=== PATIENT | male | born 1980 | race Two or more races ===

== ENCOUNTER 2017-08-21 12:14 | Emergency (ER) | payer MEDICAID, OTHER ==
[2017-08-21] MEDS ORDERED: Ketorolac 60 MG/2 ML SDV IM ONE (12:58)
[2017-08-21 13:42] VITALS: BP 116/70
--- NOTE | 2017-08-21 15:18 | EDM.PDOC ---
ED HPI GENERAL MEDICAL PROBLEM - General Chief Complaint: Gastrointestinal Problem Stated Complaint: GENERAL WEAKNES Time Seen by Provider: 08/21/17 12:28 Source of Information: Reports: Patient History Limitations: Reports: No Limitations - History of Present Illness INITIAL COMMENTS - FREE TEXT/NARRATIVE: 37 y.o.w.m came to the ed one week after he was seen at a clinic in [place] where he was dx'd with Influenza A, but was not receiving Tamiflu. He came to our ED today because of gen body ache. He did not take Motrin. Pt denied trauma. His nose is still "running". No other acute medical issues. BP116/70 pulse 102 Temp 37.1 RR 18 Pulse ox 100% on RA. 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) Generalized Pain Score (Numeric/FACES): 6 - Related Data Allergies Allergy/AdvReac Type Severity Reaction Status Date / Time guaifenesin [From Robitussin] Allergy Severe Anaphylactic Verified 08/21/17 13: 12 Shock Home Meds: Home Meds Albuterol [Proair HFA] 1 puff IH Q4HR PRN 09/01/16 [History] Past Medical History - Past Health History Medical/Surgical History: Denies Medical/Surgical History HEENT History: Reports: Impaired Vision Cardiovascular History: Reports: Heart Murmur Respiratory History: Reports: Asthma Other Respiratory History: Recently restarted on Albuterol and Singulair due to respiratory problems with asthma due to work environment Gastrointestinal History: Reports: Other (See Below) Other Gastrointestinal History: frequent diarrhea Musculoskeletal History: Reports: Fracture Other Musculoskeletal History: ? ARM A VERY YOUNG CHILD Neurological History: Reports: None Psychiatric History: Reports: Anxiety, Depression Hematologic History: Reports: None Immunologic History: Reports: None Oncologic (Cancer) History: Reports: None Dermatologic History: Reports: None - Infectious Disease History Infectious Disease History: Reports: MRSA Other Infectious Disease History: STATES DOES NOT KNOW OF CHILDHOOD ILLNESSES. - Past Surgical History Head Surgeries/Procedures: Reports: None Social & Family History - Family History Family Medical History: Noncontributory Other HEENT Family History: SEE HX - Tobacco Use Smoking Status *Q: Former Smoker Years of Tobacco use: 15 Packs/Tins Daily: 0 Used Tobacco, but Quit: Yes Month Tobacco Last Used: jul Second Hand Smoke Exposure: No - Caffeine Use Caffeine Use: Reports: Soda Caffeine Use Comment: states "I drink lots of pop" - Alcohol Use Days Per Week of Alcohol Use: 0 Number of Drinks Per Day: 0 Total Drinks Per Week: 0 - Recreational Drug Use Recreational Drug Use: No Drug Use in Last 12 Months: No Recreational Drug Type: Reports: Cocaine Recreational Drug Use Frequency: Not Used In Over 6 Months Recreational Drug Last Use: STATES STOPPED 5 YEARS AGO WITH OF DAUGHTER - Living Situation & Occupation Occupation: Unemployed ED ROS GENERAL - Review of Systems Review Of Systems: See Below Constitutional: Reports: No Symptoms HEENT: Reports: Rhinitis Respiratory: Reports: No Symptoms Cardiovascular: Reports: No Symptoms Endocrine: Reports: No Symptoms GI/Abdominal: Reports: No Symptoms : Reports: No Symptoms Musculoskeletal: Reports: Muscle Pain Skin: Reports: No Symptoms Neurological: Reports: No Symptoms Psychiatric: Reports: No Symptoms Hematologic/Lymphatic: Reports: No Symptoms Immunologic: Reports: No Symptoms ED EXAM, GENERAL - Physical Exam Exam: See Below Exam Limited By: No Limitations General Appearance: Alert, WD/WN, Mild Distress Eye Exam: Bilateral Eye: Normal Inspection Ears: Normal External Exam Ear Exam: Bilateral Ear: Auricle Normal Nose: Normal Inspection, Normal Mucosa, No Blood Throat/Mouth: Normal Inspection, Normal Lips, Normal Teeth, Normal Gums, Normal Oropharynx, Normal Voice, No Airway Compromise Head: Atraumatic, Normocephalic Neck: Normal Inspection, Supple, Non-Tender, Full Range of Motion Respiratory/Chest: No Respiratory Distress, Lungs Clear, Normal Breath Sounds Cardiovascular: Normal Peripheral Pulses, Regular Rate, Rhythm, No Edema, No Gallop, No JVD, No Murmur, No Rub Peripheral Pulses: 1+: Radial (L) GI/Abdominal: Normal Bowel Sounds, Soft, Non-Tender, No Organomegaly, No Distention, No Abnormal Bruit, No Mass, Pelvis Stable (Male) Exam: Deferred Rectal (Males) Exam: Deferred Back Exam: Normal Inspection, Full Range of Motion Extremities: Normal Inspection, Normal Range of Motion, Non-Tender, No Pedal Edema Neurological: Alert, Oriented, CN II-XII Intact, Normal Cognition, Normal Gait, No Motor/Sensory Deficits Psychiatric: Normal Affect, Normal Mood Skin Exam: Warm, Dry, Intact, Normal Color, No Rash Lymphatic: No Adenopathy Course - Vital Signs Text/Narrative:: 37 y.o.w.m came to the ed one week after he was seen at a clinic in [place] where he was dx'd with Influenza A, but was not receiving Tamiflu. He came to our ED today because of gen body ache. He did not take Motrin. Pt denied trauma. His nose is still "running". No other acute medical issues. BP116/70 pulse 102 Temp 37.1 RR 18 Pulse ox 100% on RA. PE: WNWD HM in NAD with gen body ache Labs: Influenza A test was neg Impression: Viral Syndrome, Gen bodyache. Tx: Toradol, ICE Reexam: Improved Plan: D/C with instructions Last Recorded V/S: Last Vital Signs Temp 37.1 C 08/21/17 12:28 Pulse 102 H 08/21/17 12:28 Resp 18 08/21/17 12:28 BP 116/70 08/21/17 12:28 Pulse Ox 100 08/21/17 12:28 - Orders/Labs/Meds Orders: Active Orders 24 hr Category Date Time Status Chest 2V [CR] Stat Exams 08/21/17 12:58 Taken Labs: Laboratory Tests 08/21/17 08/21/17 Range/Units 13:08 13:08 WBC 10.5 (4.5-12.0) X10-3/uL RBC 4.83 (4.30-5.75) x10(6)uL Hgb 14.0 (11.5-15.5) g/dL Hct 40.2 (30.0-51.3) % MCV 83.2 (80-96) fL MCH 28.9 (27.7-33.6) pg MCHC 34.8 (32.2-35.4) g/dL RDW 12.6 (11.5-15.5) % Plt Count 220 (125-369) X10(3)uL MPV 8.8 (7.4-10.4) fL Neut % (Auto) 76.4 (46-82) % Lymph % (Auto) 11.7 L (13-37) % [place] % (Auto) 9.9 (4-12) % Eos % (Auto) 2 (1.0-5.0) % Baso % (Auto) 0 (0-2) % Neut # (Auto) 8.1 (1.6-8.3) # Lymph # (Auto) 1.2 (0.6-5.0) # [place] # (Auto) 1.0 (0.0-1.3) # Eos # (Auto) 0.2 (0.0-0.8) # Baso # (Auto) 0.0 (0.0-0.2) # Sodium 140 (135-145) mmol/L Potassium 3.9 (3.5-5.3) mmol/L Chloride 107 (100-110) mmol/L Carbon Dioxide 26 (21-32) mmol/L BUN 9 (7-18) mg/dL Creatinine 0.9 (0.70-1.30) mg/dL Est Cr Clr Drug Dosing TNP Estimated GFR (MDRD) > 60 (>60) BUN/Creatinine Ratio 10.0 (9-20) Glucose 113 (80-116) mg/dL Calcium 8.2 L (8.6-10.2) mg/dL Meds: Medications Discontinued Medications Generic Name Dose Route Start Last Admin Trade Name Shawn PRN Reason Stop Dose Admin Ketorolac Tromethamine 60 mg 08/21/17 12:58 08/21/17 13:34 Toradol IM 08/21/17 12:59 60 mg ONETIME ONE Administration Departure - Departure Time of Disposition: 15:17 Disposition: Home, Self-Care 01 Condition: Good Clinical Impression: Viral syndrome - Discharge Information Referrals: Miryam Milan NP [Primary Care Provider] - Forms: ED Department Discharge, ED Return to Work/School Form Additional Instructions: Please apply ice to the affected area, please take Motrin for pain, please f/u, come back if your symptoms get worse acutely - My Orders Last 24 Hours: My Active Orders 08/21/17 12:58 Chest 2V [CR] Stat - Assessment/Plan Last 24 Hours: My Active Orders 08/21/17 12:58 Chest 2V [CR] Stat
--- NOTE | 2017-08-22 11:04 | CR ---
INDICATION: Cough. CHEST: PA and lateral views of the chest 08/21/2017 were compared with 2015 and revealed no significant interval change - no definite acute process. The heart, mediastinum, and bony thorax were unremarkable. No consolidating pneumonia or effusion could be identified. IMPRESSION: Stable chest, no acute process - no definite active disease. MTDD
== END 2017-08-21 15:25 | disposition home or self-care (01) ==
LOC: FB.ED 12:14
DX: B34.9 Viral infection, unspecified (principal); Z88.8 Allergy status to other drugs, medicaments and biological substances; Z87.891 Personal history of nicotine dependence
CPT/HCPCS: 36415; 71046; 80048; 85025; 87804; 96372; 99283; J1885

== ENCOUNTER 2019-07-01 13:01 | Emergency (ER) | payer SELFPAY ==
--- NOTE | 2019-07-01 13:34 | EDM.PDOC ---
ED HPI GENERAL MEDICAL PROBLEM - General Chief Complaint: Asthma Stated Complaint: ASTHMA ATTACK Time Seen by Provider: 07/01/19 13:05 Source of Information: Reports: Patient History Limitations: Reports: No Limitations - History of Present Illness INITIAL COMMENTS - FREE TEXT/NARRATIVE: pt c/o sinus pressure, HAs, cough, nasal congestion and drainage X 1 week, tells me he has Hx of asthma and afraid it might start flaring up, report cough , denies fever chills, chest pain or wheezing or any other associated sx or concerns. Chest Pain Score (Numeric/FACES): 7 - Related Data Allergies Allergy/AdvReac Type Severity Reaction Status Date / Time guaifenesin [From Robitussin] Allergy Severe Anaphylactic Verified 07/01/19 13: 10 Shock Home Meds: Home Meds Ibuprofen [Advil] 200 mg PO Q6H PRN 07/12/18 [History] Past Medical History - Past Health History Medical/Surgical History: Denies Medical/Surgical History HEENT History: Reports: Impaired Vision Cardiovascular History: Reports: Heart Murmur Respiratory History: Reports: Asthma Other Respiratory History: Recently restarted on Albuterol and Singulair due to respiratory problems with asthma due to work environment Gastrointestinal History: Reports: Other (See Below) Other Gastrointestinal History: frequent diarrhea Musculoskeletal History: Reports: Fracture Other Musculoskeletal History: ? ARM A VERY YOUNG CHILD Neurological History: Reports: None Psychiatric History: Reports: Anxiety, Depression Other Psychiatric History: Insomnia. Endocrine/Metabolic History: Reports: Obesity/BMI 30+ Hematologic History: Reports: None Immunologic History: Reports: None Oncologic (Cancer) History: Reports: None Dermatologic History: Reports: None - Infectious Disease History Infectious Disease History: Reports: MRSA Other Infectious Disease History: STATES DOES NOT KNOW OF CHILDHOOD ILLNESSES. - Past Surgical History Head Surgeries/Procedures: Reports: None GI Surgical History: Reports: Appendectomy Social & Family History - Family History Family Medical History: Noncontributory Other HEENT Family History: SEE HX - Tobacco Use Smoking Status *Q: Current Some Day Smoker Years of Tobacco use: 20 Packs/Tins Daily: 0.1 - Caffeine Use Caffeine Use: Reports: Soda Caffeine Use Comment: states "I drink lots of pop" - Recreational Drug Use Recreational Drug Use: No - Living Situation & Occupation Occupation: Unemployed ED ROS GENERAL - Review of Systems Review Of Systems: See Below Constitutional: Reports: No Symptoms. Denies: Fever, Chills HEENT: Reports: Rhinitis, Sinus Problem. Denies: Ear Pain, Eye Discharge, Nose Pain, Throat Pain, Throat Swelling, Vision Change Respiratory: Reports: Cough. Denies: Shortness of Breath, Wheezing, Sputum Cardiovascular: Reports: No Symptoms GI/Abdominal: Reports: No Symptoms : Reports: No Symptoms Skin: Reports: No Symptoms Neurological: Reports: No Symptoms ED EXAM, GENERAL - Physical Exam Exam: See Below Exam Limited By: No Limitations General Appearance: Alert, Mild Distress Eye Exam: Bilateral Eye: Normal Inspection Ear Exam: Bilateral Ear: TM normal Nose: Nasal Drainage Throat/Mouth: Normal Inspection, Normal Oropharynx Head: Other (tenderness over maxilarry sinuses. ) Neck: Normal Inspection, Supple, Non-Tender Respiratory/Chest: No Respiratory Distress, Lungs Clear. No: Wheezing Cardiovascular: Normal Peripheral Pulses, Regular Rate, Rhythm GI/Abdominal: Normal Bowel Sounds, Soft, Non-Tender Course - Vital Signs Text/Narrative:: pt clinically has acute sinusitis , will treat with zpack and prednisone for few days. pt was given also an inhaler as he is out of it. his asthma appear to be stable at this time. Last Recorded V/S: Last Vital Signs Temp 36.3 C 07/01/19 13:05 Pulse 88 07/01/19 13:05 Resp 20 07/01/19 13:05 BP 110/61 07/01/19 13:05 Pulse Ox 97 07/01/19 13:05 Departure - Departure Time of Disposition: 13:34 Disposition: Home, Self-Care 01 Clinical Impression: Acute sinusitis - Discharge Information Referrals: Miryam Milan NP [Primary Care Provider] - Sepsis Event Note - Evaluation Sepsis Screening Result: No Definite Risk - Focused Exam Vital Signs: Vital Signs Temp Pulse Resp BP Pulse Ox 07/01/19 13:05 36.3 C 88 20 110/61 97 Date Exam was Performed: 07/01/19 Time Exam was Performed: 13:29
[2019-07-01 18:08] VITALS: BP 119/75; PULSE 92
== END 2019-07-01 13:50 | disposition home or self-care (01) ==
LOC: FB.ED 13:01
DX: J01.90 Acute sinusitis, unspecified (principal); J45.909 Unspecified asthma, uncomplicated; E66.9 Obesity, unspecified; Z68.31 Body mass index [BMI] 31.0-31.9, adult; Z88.8 Allergy status to other drugs, medicaments and biological substances; F17.210 Nicotine dependence, cigarettes, uncomplicated
CPT/HCPCS: 99283

== ENCOUNTER 2021-01-09 22:08 | Emergency (ER) | payer MEDICAID ==
[2021-01-09 22:18] VITALS: BP 119/84; PULSE 95
[2021-01-09] MEDS ORDERED: Cyclobenzaprine 10 MG Tab PO ONE (22:22)
[2021-01-09] MEDS ORDERED: Ibuprofen 600 MG Tab PO ONE (22:22)
--- NOTE | 2021-01-09 22:30 | EDM.PDOC ---
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 Denies injury. Pain is exacerbated with movement. No numbness or tingling. He has not take any OTC medication. He is right hand dominant. 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 Denies: CAD Respiratory History: Reports: Asthma Other Respiratory History: Recently restarted on Albuterol and Singulair due to respiratory problems with asthma due to work environment Gastrointestinal History: Reports: Other (See Below) Other Gastrointestinal History: frequent diarrhea Musculoskeletal History: Reports: Fracture Other Musculoskeletal History: ? ARM A VERY YOUNG CHILD Neurological History: Reports: None Psychiatric History: Reports: Anxiety, Depression Other Psychiatric History: Insomnia. Endocrine/Metabolic History: Reports: Obesity/BMI 30+ Hematologic History: Reports: None Immunologic History: Reports: None Oncologic (Cancer) History: Reports: None Dermatologic History: Reports: None - Infectious Disease History Infectious Disease History: Reports: MRSA Other Infectious Disease History: STATES DOES NOT KNOW OF CHILDHOOD ILLNESSES. - Past Surgical History Head Surgeries/Procedures: Reports: None GI Surgical History: Reports: Appendectomy Social & Family History - Family History Family Medical History: No Pertinent Family History Other HEENT Family History: SEE HX - Caffeine Use Caffeine Use: Reports: Soda Caffeine Use Comment: states "I drink lots of pop" - Living Situation & Occupation Occupation: Unemployed Review of Systems - Review of Systems Review Of Systems: Comprehensive ROS is negative, except as noted in HPI. ED EXAM, GENERAL - Physical Exam Exam: See Below Exam Limited By: No Limitations General Appearance: Alert, WD/WN, No Apparent Distress Head: Atraumatic, Normocephalic Respiratory/Chest: No Respiratory Distress, Lungs Clear, Normal Breath Sounds Cardiovascular: Regular Rate, Rhythm, No Murmur Peripheral Pulses: 3+: Radial (R) Extremities: Other (Tenderness to right axilla, right shoulder, and right upper back. Muscles in these areas are tense.) Neurological: Alert, Oriented, Normal Cognition, No Motor/Sensory Deficits Psychiatric: Normal Affect, Normal Mood Skin Exam: Warm, Dry, Intact Course - Vital Signs Last Recorded V/S: Last Vital Signs Temp 36.8 C 01/09/21 22:16 Pulse 95 01/09/21 22:16 Resp 18 01/09/21 22:16 BP 119/84 01/09/21 22:16 Pulse Ox 97 01/09/21 22:16 - Orders/Labs/Meds Meds: Medications Discontinued Medications Generic Name Dose Route Start Last Admin Trade Name Freq PRN Reason Stop Dose Admin Cyclobenzaprine HCl 10 mg 01/09/21 22:22 Cyclobenzaprine 10 Mg Tab PO 01/09/21 22:23 ONETIME ONE Ibuprofen 600 mg 01/09/21 22:22 Ibuprofen 600 Mg Tab PO 01/09/21 22:23 ONETIME ONE Departure - Departure Time of Disposition: 22:28 Disposition: Home, Self-Care 01 Condition: Good Clinical Impression: Muscle spasm - Discharge Information *PRESCRIPTION DRUG MONITORING PROGRAM REVIEWED*: No *COPY OF PRESCRIPTION DRUG MONITORING REPORT IN PATIENT YOHAN: Not Applicable Prescriptions: Cyclobenzaprine [Flexeril] 10 mg PO TID PRN #20 tab PRN Reason: Muscle Spasm - Painful Instructions: Muscle Cramps and Spasms, [id number] Referrals: Miryam Milan NP [Primary Care Provider] - Additional Instructions: Take OTC Ibuprofen 600 mg every 6 hours as needed to control pain. Fill the prescription for Flexeril and take as directed. Rest. Follow up with your Primary Physician in 2-3 days if symptoms don't improve. Sepsis Event Note (ED) - Evaluation Sepsis Screening Result: No Definite Risk - Focused Exam Vital Signs: Vital Signs Temp Pulse Resp BP Pulse Ox 01/09/21 22:16 36.8 C 95 18 119/84 97
== END 2021-01-09 22:38 | disposition home or self-care (01) ==
LOC: FB.ED 22:08
DX: M62.838 Other muscle spasm (principal); E66.9 Obesity, unspecified; Z68.30 Body mass index [BMI] 30.0-30.9, adult; Z88.8 Allergy status to other drugs, medicaments and biological substances
CPT/HCPCS: 99283; A9270-GY

== ENCOUNTER 2021-03-09 23:22 | Emergency (ER) | payer MEDICAID ==
[2021-03-09 23:33] VITALS: BP 140/77; PULSE 99
[2021-03-10] MEDS ORDERED: Clindamycin HCl 150 MG Cap PO STA (00:04)
--- NOTE | 2021-03-10 00:04 | EDM.PDOC ---
ED HPI GENERAL MEDICAL PROBLEM - General Chief Complaint: General Stated Complaint: SWOLLEN CHEEK/MOUTH Time Seen by Provider: 03/09/21 23:35 Source of Information: Reports: Patient History Limitations: Reports: No Limitations - History of Present Illness INITIAL COMMENTS - FREE TEXT/NARRATIVE: Patient presented to the ED because of pain,swelling, discharge from the right lower gum area. which started 3 days ago. There is no fever or pain. Right Lower Gums Pain Score (Numeric/FACES): 7 - Related Data Allergies Allergy/AdvReac Type Severity Reaction Status Date / Time guaifenesin [From Robitussin] Allergy Severe Anaphylactic Verified 07/01/19 13:10 Shock Home Meds: Home Meds Clindamycin HCl 450 mg PO TID #90 capsule 03/10/21 [Rx] Past Medical History - Past Health History Medical/Surgical History: Denies Medical/Surgical History HEENT History: Reports: Impaired Vision Cardiovascular History: Reports: Heart Murmur Respiratory History: Reports: Asthma Other Respiratory History: Recently restarted on Albuterol and Singulair due to respiratory problems with asthma due to work environment Gastrointestinal History: Reports: Other (See Below) Other Gastrointestinal History: frequent diarrhea Musculoskeletal History: Reports: Fracture Other Musculoskeletal History: ? ARM A VERY YOUNG CHILD Neurological History: Reports: None Psychiatric History: Reports: Anxiety, Depression Other Psychiatric History: Insomnia. Endocrine/Metabolic History: Reports: Obesity/BMI 30+ Hematologic History: Reports: None Immunologic History: Reports: None Oncologic (Cancer) History: Reports: None Dermatologic History: Reports: None - Infectious Disease History Infectious Disease History: Reports: MRSA Other Infectious Disease History: STATES DOES NOT KNOW OF CHILDHOOD ILLNESSES. - Past Surgical History Head Surgeries/Procedures: Reports: None GI Surgical History: Reports: Appendectomy Social & Family History - Family History Family Medical History: No Pertinent Family History Other HEENT Family History: SEE HX - Tobacco Use Tobacco Use Status *Q: Current Some Day Tobacco User Years of Tobacco use: 20 Packs/Tins Daily: 0.2 - Caffeine Use Caffeine Use: Reports: Soda Caffeine Use Comment: states "I drink lots of pop" - Recreational Drug Use Recreational Drug Use: No - Living Situation & Occupation Occupation: Unemployed ED ROS GENERAL - Review of Systems Review Of Systems: See Below Constitutional: Reports: No Symptoms HEENT: Reports: No Symptoms Respiratory: Reports: No Symptoms Cardiovascular: Reports: No Symptoms Endocrine: Reports: No Symptoms GI/Abdominal: Reports: No Symptoms : Reports: No Symptoms Musculoskeletal: Reports: No Symptoms Skin: Reports: No Symptoms Neurological: Reports: No Symptoms Psychiatric: Reports: No Symptoms ED EXAM, GENERAL - Physical Exam Exam: See Below Exam Limited By: No Limitations General Appearance: Alert, No Apparent Distress Ears: Normal External Exam, Normal Canal Nose: Normal Inspection, Normal Mucosa, No Blood Throat/Mouth: Other (Right lower gum area with swelling and pus discharge) Head: Atraumatic Neck: Normal Inspection Respiratory/Chest: No Respiratory Distress, Lungs Clear, Normal Breath Sounds Cardiovascular: Normal Peripheral Pulses, Regular Rate, Rhythm, No Edema GI/Abdominal: Normal Bowel Sounds, Soft, Non-Tender Extremities: Normal Inspection, Normal Range of Motion Neurological: Alert, Oriented, CN II-XII Intact, Normal Cognition Psychiatric: Normal Affect, Normal Mood Skin Exam: Warm, Intact Lymphatic: No Adenopathy Course - Vital Signs Text/Narrative:: Clindamycin 600 mg PO x1 Last Recorded V/S: Last Vital Signs Temp 36.6 C 03/09/21 23:27 Pulse 99 03/09/21 23:27 Resp 18 03/09/21 23:27 BP 140/77 03/09/21 23:27 Pulse Ox 99 03/09/21 23:27 - Orders/Labs/Meds Meds: Medications Discontinued Medications Generic Name Dose Route Start Last Admin Trade Name Shawn PRN Reason Stop Dose Admin Clindamycin HCl 600 mg 03/10/21 00:04 03/10/21 00:09 Clindamycin Hcl 150 Mg Cap PO 03/10/21 00:05 600 mg NOW STA Administration Departure - Departure Time of Disposition: 00:10 Disposition: Home, Self-Care 01 Condition: Good Clinical Impression: Oral abscess - Discharge Information Prescriptions: Clindamycin HCl 450 mg PO TID #90 capsule Instructions: Dental Abscess, [id number] Referrals: PCP,None [Primary Care Provider] - Forms: ED Department Discharge Additional Instructions: Please read discharge instructions on oral/dental abscess Gurgle with salt and water Take clindamycin 450 mg 3 times daily for 10 days Follow up with your dentist if swelling persist after 1 week of oral antibiotic treatment. Sepsis Event Note (ED) - Evaluation Sepsis Screening Result: No Definite Risk - Focused Exam Vital Signs: Vital Signs Temp Pulse Resp BP Pulse Ox 03/09/21 23:27 36.6 C 99 18 140/77 99
== END 2021-03-10 00:14 | disposition home or self-care (01) ==
LOC: FB.ED 23:22
DX: K12.2 Cellulitis and abscess of mouth (principal); J45.909 Unspecified asthma, uncomplicated; E66.9 Obesity, unspecified; Z72.0 Tobacco use; Z88.8 Allergy status to other drugs, medicaments and biological substances
CPT/HCPCS: 99283; A9270

== ENCOUNTER 2021-12-28 21:02 | Emergency (ER) | payer MEDICAID ==
[2021-12-28] MEDS ORDERED: Sodium Chloride 0.9% 10 ML Syringe FLUSH PRN (21:45)
[2021-12-28] MEDS ORDERED: Sodium Chloride 0.9% 1,000 ML IV ONE (21:45)
[2021-12-28 22:23] LABS: ESTIMATED GFR > 60 (>60)
[2021-12-28] MEDS ORDERED: Ketorolac 30 MG/ML SDV IVPUSH ONE (23:27)
[2021-12-29 00:22] LABS: CORONAVIRUS COVID-19 NAA NEGATIVE (NEGATIVE)
[2021-12-29] MEDS ORDERED: Prochlorperazine 10 MG/2 ML SDV IVPUSH ONE (00:36)
[2021-12-29] MEDS ORDERED: diphenhydrAMINE 50 MG/ML SDV IVPUSH ONE (00:36)
[2021-12-29] MEDS ORDERED: Sodium Chloride 0.9% 50 ML IV SCH (00:45)
[2021-12-29 01:07] VITALS: BP 139/78; PULSE 92
[2021-12-31 11:13] LABS: LYME TOTAL ANTIBODY EIA Negative (Negative)
== END 2021-12-29 00:55 | disposition home or self-care (01) ==
LOC: FB.ED 21:02
DX: R51.9 Headache, unspecified (principal); B34.9 Viral infection, unspecified; E66.9 Obesity, unspecified; Z68.35 Body mass index [BMI] 35.0-35.9, adult; Z90.49 Acquired absence of other specified parts of digestive tract; Z79.899 Other long term (current) drug therapy; Z88.8 Allergy status to other drugs, medicaments and biological substances; Z72.0 Tobacco use; Z20.822 Contact with and (suspected) exposure to COVID-19
CPT/HCPCS: 0240U; 36415; 70450; 80053; 81001; 83735; 85025; 86140; 86618; 87798; 96361; 96374; 96375; 99284; J0780; J1200; J1885; J3490; J7030; 99281

== ENCOUNTER 2022-07-29 17:13 | Emergency (ER) | payer MEDICAID ==
[2022-07-29] MEDS ORDERED: Cyclobenzaprine 10 MG Tab PO ONE (18:21)
[2022-07-29] MEDS ORDERED: traMADol 50 MG Tab PO STA (18:21)
[2022-07-29] MEDS ORDERED: Ketorolac 30 MG/ML SDV IM ONE (18:21)
[2022-07-29 19:22] VITALS: BP 125/87; PULSE 69
== END 2022-07-29 19:15 | disposition home or self-care (01) ==
LOC: FB.ED 17:13
DX: S39.012A Strain of muscle, fascia and tendon of lower back, initial encounter (principal); F17.210 Nicotine dependence, cigarettes, uncomplicated; E66.9 Obesity, unspecified; Z68.34 Body mass index [BMI] 34.0-34.9, adult; X50.0XXA Overexertion from strenuous movement or load, initial encounter; Y99.0 Civilian activity done for income or pay
CPT/HCPCS: 96372; 99283; A9270-GY; J1885

== ENCOUNTER 2023-04-27 04:32 | Emergency (ER) | payer MEDICAID ==
[2023-04-27 05:14] LABS: BLOOD UREA NITROGEN,BUN 11 mg/dL (7-18); CALCIUM 8.6 mg/dL (8.6-10.2); CARBON DIOXIDE,CO2 28 mmol/L (21-32); CHLORIDE,CL 103 mmol/L (100-110); EST CRCL DRUG DOSING (CG) 121.62 mL/min; ESTIMATED GFR 97 mL/min (>60); GLUCOSE RANDOM 97 mg/dL (80-116); POTASSIUM,K 3.1 mmol/L (3.5-5.3); SODIUM,NA 141 mmol/L (135-145)
[2023-04-27 05:20] LABS: A/G RATIO 0.9; ALANINE AMINOTRANSFERASE,ALT 28 U/L (12-36); ALBUMIN 3.7 g/dL (3.5-5.2); ALKALINE PHOSPHATASE 87 IU/L (56-112); ASPARTATE AMNIOTRANSFERASE,AST 13 IU/L (5-25); BILIRUBIN TOTAL 0.7 mg/dL (0.1-1.3); PROTEIN TOTAL,TP 7.8 g/dL (6.0-8.0)
[2023-04-27 05:33] LABS: BASOPHILS PERCENT AUTO 0.4 % (0.3-3.8); EOSINOPHILS ABSOLUTE AUTO 0.2 x10-3/uL (0.0-0.6); EOSINOPHILS PERCENT AUTO 1.7 % (0.1-6.8); HEMATOCRIT 43.5 % (38.3-50.1); HEMOGLOBIN 15.1 g/dL (12.9-17.7); LYMPHOCYTES ABSOLUTE AUTO 2.5 x10-3/uL (0.5-4.5); LYMPHOCYTES PERCENT AUTO 24.7 % (15.8-45.3); MEAN CORPUSCULAR HEMOGLOBIN 29.4 pg (27.0-33.3); MEAN CORPUSCULAR HGB CONC 34.7 g/dL (28.7-35.3); MEAN CORPUSCULAR VOLUME 84.8 fL (80.8-98.7); MONOCYTES ABSOLUTE AUTO 0.8 x10-3/uL (0.0-1.2); MONOCYTES PERCENT AUTO 8.4 % (5.5-15.2); NEUTROPHILS ABSOLUTE AUTO 6.5 x10-3/uL (1.7-6.9); NEUTROPHILS PERCENT AUTO 64.8 % (40.3-71.8); PLATELET COUNT,PLT 250 x10(3)uL (117-477); RED BLOOD CELL COUNT 5.13 x10(6)uL (3.90-5.90); RED CELL DISTRIBUTION WIDTH 13.1 % (12.4-15.0); WHITE BLOOD CELL COUNT,WBC 10.1 x10-3/uL (3.2-10.1)
[2023-04-27 05:37] LABS: ACETAMINOPHEN < 2 ug/mL (<2); SALICYLATE < 2.8 mg/dL (<2.8)
[2023-04-27 05:38] LABS: AMPHETAMINES SCREEN, URINE NEGATIVE (NEGATIVE); BARBITURATE SCREEN,URINE NEGATIVE (NEGATIVE); BENZODIAZEPINES SCREEN,URINE NEGATIVE (NEGATIVE); METHADONE SCREEN, URINE NEGATIVE (NEGATIVE); METHAMPHETAMINE SCREEN, URINE NEGATIVE (NEGATIVE); OXYCODONE SCREEN,URINE NEGATIVE (NEGATIVE); PROPOXYPHENE SCREEN,URINE NEGATIVE (NEGATIVE); THC SCREEN,URINE NEGATIVE (NEGATIVE)
[2023-04-27 05:39] LABS: BUPRENORPHINE SCREEN,URINE NEGATIVE (NEGATIVE)
[2023-04-27 05:58] LABS: INFLUENZA A NAA NEGATIVE (NEGATIVE); INFLUENZA B NAA NEGATIVE (NEGATIVE); RESPIRATORY SYNCYTIAL VIR NAA NEGATIVE (NEGATIVE)
[2023-04-27 06:00] LABS: CORONAVIRUS COVID-19 NAA NEGATIVE (NEGATIVE)
[2023-04-27 06:26] VITALS: BP 117/57; PULSE 74
== END 2023-04-27 06:32 | disposition home or self-care (01) ==
LOC: FB.ED 04:32
DX: F32.9 Major depressive disorder, single episode, unspecified (principal); Z88.8 Allergy status to other drugs, medicaments and biological substances; Z79.899 Other long term (current) drug therapy; Z20.822 Contact with and (suspected) exposure to COVID-19; X78.9XXA Intentional self-harm by unspecified sharp object, initial encounter
CPT/HCPCS: 0241U; 36415; 80053; 80143; 80179; 80307; 85025; 99285

== ENCOUNTER 2023-06-16 16:23 | Emergency (ER) | payer MEDICAID ==
[2023-06-16 17:36] LABS: INFLUENZA A NAA NEGATIVE (NEGATIVE); INFLUENZA B NAA NEGATIVE (NEGATIVE); RESPIRATORY SYNCYTIAL VIR NAA NEGATIVE (NEGATIVE)
[2023-06-16 17:38] LABS: CORONAVIRUS COVID-19 NAA POSITIVE (NEGATIVE)
[2023-06-16] MEDS: Dexamethasone 4 MG Tab PO ONE (17:59)
[2023-06-16 18:09] VITALS: BP 123/79; PULSE 65
== END 2023-06-16 18:10 | disposition home or self-care (01) ==
LOC: FB.ED 16:23
DX: U07.1 COVID-19 (principal); Z88.8 Allergy status to other drugs, medicaments and biological substances; E66.9 Obesity, unspecified
CPT/HCPCS: 0241U; 99282; 99284; J8540

== ENCOUNTER 2024-10-05 19:54 | Emergency (ER) | payer SELFPAY ==
[2024-10-05 20:29] VITALS: BP 127/56; PULSE 96
== END 2024-10-05 21:11 | disposition home or self-care (01) ==
LOC: FB.ED 19:54
DX: J06.9 Acute upper respiratory infection, unspecified (principal); J45.909 Unspecified asthma, uncomplicated; E66.9 Obesity, unspecified; Z88.8 Allergy status to other drugs, medicaments and biological substances; Z79.899 Other long term (current) drug therapy; Z90.49 Acquired absence of other specified parts of digestive tract
CPT/HCPCS: 87428-QW; 99283; 99284

== ENCOUNTER 2025-04-18 18:17 | Emergency (ER) | payer SELFPAY ==
[2025-04-18] MEDS ORDERED: Sodium Chloride 0.9% 10 ML Syringe FLUSH PRN (18:32)
[2025-04-18] MEDS: Ondansetron 4 MG/2 ML SDV IVPUSH ONE (19:04)
[2025-04-18 19:10] LABS: BASOPHILS ABSOLUTE AUTO 0.0 x10-3/uL (0.0-0.3); BASOPHILS PERCENT AUTO 0.7 % (0.3-3.8); EOSINOPHILS ABSOLUTE AUTO 0.2 x10-3/uL (0.0-0.6); EOSINOPHILS PERCENT AUTO 2.8 % (0.1-6.8); LYMPHOCYTES ABSOLUTE AUTO 1.9 x10-3/uL (0.5-4.5); LYMPHOCYTES PERCENT AUTO 26.9 % (15.8-45.3); MEAN PLATELET VOLUME 8.9 fL (6.7-11.0); MONOCYTES ABSOLUTE AUTO 0.6 x10-3/uL (0.0-1.2); MONOCYTES PERCENT AUTO 8.6 % (5.5-15.2); NEUTROPHILS ABSOLUTE AUTO 4.2 x10-3/uL (1.7-6.9); NEUTROPHILS PERCENT AUTO 61.0 % (40.3-71.8); PLATELET COUNT,PLT 249 x10(3)uL (117-477); RED BLOOD CELL COUNT 5.21 x10(6)uL (3.90-5.90); RED CELL DISTRIBUTION WIDTH 13.5 % (12.4-15.0); WHITE BLOOD CELL COUNT,WBC 6.9 x10-3/uL (3.2-10.1)
[2025-04-18 19:16] LABS: BLOOD UREA NITROGEN,BUN 11 mg/dL (7-18); CARBON DIOXIDE,CO2 28 mmol/L (21-32); CHLORIDE,CL 106 mmol/L (100-110); CREATININE 0.9 mg/dL (0.70-1.30); ESTIMATED GFR 109 mL/min (>60); GLUCOSE RANDOM 92 mg/dL (80-116); POTASSIUM,K 4.1 mmol/L (3.5-5.3); SODIUM,NA 140 mmol/L (135-145)
[2025-04-18 19:21] LABS: A/G RATIO 0.9; ALANINE AMINOTRANSFERASE,ALT 43 U/L (12-36); ASPARTATE AMNIOTRANSFERASE,AST 18 IU/L (5-25); BILIRUBIN TOTAL 0.3 mg/dL (0.1-1.3); PROTEIN TOTAL,TP 7.3 g/dL (6.0-8.0)
[2025-04-18 19:25] LABS: LACTIC ACID 0.7 mmol/L (0.4-2.0)
[2025-04-18 20:26] LABS: GLUCOSE,URINE NORMAL (NORMAL); OCCULT BLOOD,URINE NEGATIVE (NEGATIVE)
[2025-04-18 20:41] LABS: APPEARANCE,URINE CLEAR (CLEAR)
[2025-04-18 20:48] VITALS: BP 117/71; PULSE 60
== END 2025-04-18 20:46 | disposition home or self-care (01) ==
LOC: FB.ED 18:17
DX: B34.9 Viral infection, unspecified (principal); F17.210 Nicotine dependence, cigarettes, uncomplicated; Z88.8 Allergy status to other drugs, medicaments and biological substances; Z79.899 Other long term (current) drug therapy
CPT/HCPCS: 74176; 80053; 81003; 83605; 83690; 85025; 86140; 96361; 96374; 99284; J2405; J7030